=== PATIENT | female | born 1950 | race Caucasian/White ===

== ENCOUNTER 2019-08-14 00:10 | Emergency (ER) | payer MEDICARE ==
[~2019-08-14] VITALS: Ht 162.6 cm; Wt 88.2 kg
[2019-08-14 00:18] VITALS: BP 163/101
[2019-08-14] MEDS ORDERED: FLUORESCEIN OPHTHALMIC 1 MG STRIP ONE (01:04)
[2019-08-14] MEDS ORDERED: PROPARACAINE OPHTH 0.5%, 15ML ONE (01:04)
--- NOTE | 2019-08-14 01:09 | NUR ---
PT IN ROOM AT THIS TIME; DR CASTELLANO AT CHAIRSIDE. PT HAS FAMILY IN ROOM AND VERBALIZES UNDERSTANDING OF POC. PT HAS CALL LIGHT WITHIN REACH.
[2019-08-14] MEDS ORDERED: ATOR-2 PO (01:40)
[2019-08-14] MEDS ORDERED: HYDROcodone/APAP 5/325 TABLET ONE (01:49)
[2019-08-14] MEDS ORDERED: HYDROcodone/APAP 5/325 TABLET PO ONE (02:00)
== END 2019-08-14 02:04 | disposition home or self-care (01) ==
LOC: ED 01:18
DX: H57.11 Ocular pain, right eye (principal)
CPT/HCPCS: 99283